=== PATIENT | male | born 1985 | race Caucasian/White ===

== ENCOUNTER 2020-12-04 14:29 | Inpatient (IN) | payer OTHER ==
[~2020-12-04] VITALS: Ht 193 cm; Wt 138.8 kg
[2020-12-04 17:49] LABS: HEMOGLOBIN 15.8 gm/dl (14.0-17.5); RED BLOOD COUNT 5.37 M/UL (4.20-5.50); WHITE BLOOD COUNT 15.6 K/UL (4.5-11.0)
[2020-12-04 18:20] LABS: BUN/CREATININE RATIO 19 (0-10)
[2020-12-05 05:59] LABS: HEMOGLOBIN 13.8 gm/dl (14.0-17.5); RED BLOOD COUNT 4.74 M/UL (4.20-5.50); WHITE BLOOD COUNT 12.9 K/UL (4.5-11.0)
[2020-12-05 06:11] LABS: BUN/CREATININE RATIO 18 (0-10)
[2020-12-05] MEDS ORDERED: GLUCOPHAGE XR500 MG PO (10:38)
[2020-12-05] MEDS ORDERED: DAILY VALUE1 EACH PO (10:38)
[2020-12-05] MEDS ORDERED: HYDROCHLOROTHIA25 MG PO (10:38)
[2020-12-05] MEDS ORDERED: PRAVACHOL40 MG PO (10:38)
[2020-12-05] MEDS ORDERED: APPLE CIDER VI500 MG PO (10:39)
[2020-12-05] MEDS ORDERED: CINNAMON500 MG PO (10:39)
[2020-12-05] MEDS ORDERED: ALTACE2.5 MG PO (10:40)
[2020-12-05] MEDS ORDERED: GLUCOTROL5 MG PO (10:40)
[2020-12-05] MEDS ORDERED: ACID REDUCER200 MG PO (10:41)
[2020-12-06 05:54] LABS: BUN/CREATININE RATIO 12 (0-10)
[2020-12-07 02:54] LABS: HEMOGLOBIN 13.2 gm/dl (14.0-17.5); RED BLOOD COUNT 4.52 M/UL (4.20-5.50)
[2020-12-07 03:10] LABS: WHITE BLOOD COUNT 9.6 K/UL (4.5-11.0)
[2020-12-07 03:15] LABS: BUN/CREATININE RATIO 13 (0-10)
[2020-12-08 07:16] LABS: BUN/CREATININE RATIO 13 (0-10)
[2020-12-09 04:36] LABS: RED BLOOD COUNT 4.78 M/UL (4.20-5.50); WHITE BLOOD COUNT 9.1 K/UL (4.5-11.0)
[2020-12-09 04:50] LABS: BUN/CREATININE RATIO 13 (0-10)
--- NOTE | 2020-12-09 18:33 | NUR ---
12/09/20 1835 [facility] NOTIFIED OF DISCHARGE AT [phone]
--- NOTE | 2020-12-09 18:45 | NUR ---
12/09/20 1844 REPORT CALLED TO NANI AT [facility]
== END 2020-12-09 19:09 | disposition home health service (06) | DRG 872 ==
LOC: ER1 14:29 → CDU 19:26 → MED SURG 4 19:26
PROVIDERS: Internal Medicine; Physician Assistant; ADMIT Internal Medicine
PROC: 02HV33Z Insertion of Infusion Device into Superior Vena Cava, Percutaneous Approach (ICD-10-PCS; principal; 2020-12-09)
PROC: B548ZZA Ultrasonography of Superior Vena Cava, Guidance (ICD-10-PCS; 2020-12-09)
DX: A40.1 Sepsis due to streptococcus, group B (principal); L97.429 Non-pressure chronic ulcer of left heel and midfoot with unspecified severity; M86.172 Other acute osteomyelitis, left ankle and foot; E11.69 Type 2 diabetes mellitus with other specified complication; E11.621 Type 2 diabetes mellitus with foot ulcer; I10 Essential (primary) hypertension; E78.5 Hyperlipidemia, unspecified; Z79.84 Long term (current) use of oral hypoglycemic drugs; Z79.899 Other long term (current) drug therapy; F17.210 Nicotine dependence, cigarettes, uncomplicated; L03.032 Cellulitis of left toe; B95.1 Streptococcus, group B, as the cause of diseases classified elsewhere; Z83.3 Family history of diabetes mellitus; Z20.822 Contact with and (suspected) exposure to COVID-19
CPT/HCPCS: 36415; 73630; 73700; 73721; 80048; 80053; 80202; 82962; 83036; 83605; 85025; 85027; 85652; 86140; 87040; 87070; 87077; 87186; 87205; 87635; 93926; 96365; 96366; 96367; 96372; 96375; 96376; 99285; J1335; J1650; J2543; J3370; J7070

== ENCOUNTER → 2021-02-23 | Outpatient (CLI) | payer OTHER ==
[~2021-02-23] MED LIST: ACID REDUCER200 MG PO; ALTACE2.5 MG PO; APPLE CIDER VI500 MG PO; CINNAMON500 MG PO; DAILY VALUE1 EACH PO; GLUCOPHAGE XR500 MG PO; GLUCOTROL5 MG PO; HYDROCHLOROTHIA25 MG PO; PRAVACHOL40 MG PO
== END ==
LOC: OPSV 09:48
DX: M86.9 Osteomyelitis, unspecified (principal); Z45.2 Encounter for adjustment and management of vascular access device
CPT/HCPCS: G0463

== ENCOUNTER → 2021-03-07 | Outpatient (CLI) | payer OTHER | LOC: KOH-I 15:02 | DX: M86.172 Other acute osteomyelitis, left ankle and foot (principal) | CPT/HCPCS: 73718 ==

== ENCOUNTER → 2021-05-03 | Outpatient (CLI) | payer OTHER | LOC: LBRF 17:32 | DX: E11.621 Type 2 diabetes mellitus with foot ulcer (principal); L97.529 Non-pressure chronic ulcer of other part of left foot with unspecified severity | CPT/HCPCS: 87070; 87077; 87186; 87205 ==